=== PATIENT | male | born 1970 | race African-American/Black ===

== ENCOUNTER 2018-07-30 20:31 | Emergency (ER) | payer OTHER ==
[~2018-07-30] VITALS: Ht 182.9 cm; Wt 81.2 kg
[2018-07-30 20:38] VITALS: BP 115/65
[2018-07-30] MEDS ORDERED: NACL 0.9% 1,000 ML IV ONE (21:30)
[2018-07-30] MEDS ORDERED: ASPIRIN 81 MG TAB.CHEW PO ONE (21:30)
[2018-07-30 23:50] VITALS: BP 116/64
== END 2018-07-30 23:50 | disposition home or self-care (01) ==
LOC: MED 20:31
DX: R10.9 Unspecified abdominal pain (principal); Z88.6 Allergy status to analgesic agent; Z88.5 Allergy status to narcotic agent
CPT/HCPCS: 74022; 93005; 99283

== ENCOUNTER 2018-09-20 16:51 | Inpatient (IN) | payer OTHER ==
[~2018-09-20] VITALS: Ht 180.3 cm; Wt 70.3 kg
[2018-09-20 16:55] VITALS: BP 145/95
--- NOTE | 2018-09-20 17:00 | NUR ---
47m bib brother with c/o 10/ diffuse abd pain, but mainly to ruq and rlq abd pain x 4 days, progressively getting worse. Patient also reports of n/v/d. Patient reports of non bloody diarrhea and trace blood in emesis. Approx. 20 episodes a day. Patient denies any urinary complaints or fevers. Pt is aaox4 to person, place, time, and situation. RR are even and unlabored. Dry mucous membrances. Abd soft and tender to palpation to ruq and rlq. Awaiting er md miller. Patient to cardiac, bp, pulse ox, and pulse monitoring. ER MD velasco aware of patient status. Will continue to monitor.
--- NOTE | 2018-09-20 17:55 | NUR ---
patient refused ct. informed er md velasco.
--- NOTE | 2018-09-20 17:57 | NUR ---
patient aware of need of urine sample. urinal given.
--- NOTE | 2018-09-20 17:57 | NUR ---
lab by bedside
[2018-09-20] MEDS ORDERED: NACL 0.9% 1,000 ML IV ONE (18:15)
[2018-09-20 18:27] LABS: BASOPHILS % (AUTO) 0.3 % (0.0-2.0); EOSINOPHILS % (AUTO) 0.1 % (0.0-4.0); HEMATOCRIT 46.8 % (36-52); HEMOGLOBIN 15.2 g/dL (12.0-18.0); LYMPHOCYTES # (AUTO) 0.5 K/uL (2.0-11.5); LYMPHOCYTES % (AUTO) 6.4 % (20.5-51.1); MEAN CORPUSCULAR HEMOGLOBIN 30 pg (27-31); MEAN CORPUSCULAR HGB CONC 32 g/dL (33-37); MEAN CORPUSCULAR VOLUME 91.5 fL (80-94); MONOCYTES # (AUTO) 0.5 K/uL (0.8-1.0); MONOCYTES % (AUTO) 6.3 % (1.7-9.3); NEUTROPHILS % (AUTO) 86.9 % (42.2-75.2); PLATELET COUNT (AUTO) 226 K/uL (140-450); RED BLOOD CELL COUNT(AUTO) 5.11 MIL/uL (4.20-6.10); RED CELL DISTRIBUTION WIDTH 14.7 % (11.6-13.7); WHITE BLOOD COUNT (AUTO) 8.1 K/uL (4.8-10.8)
[2018-09-20 18:47] LABS: ANION GAP 12.5 (8-16); CARBON DIOXIDE 28.9 mmol/L (21-32); CREATININE 1.1 mg/dL (0.7-1.3); POTASSIUM 3.4 mmol/L (3.5-5.1); TOTAL BILIRUBIN 1.5 mg/dL (0.0-1.0)
--- NOTE | 2018-09-20 18:48 | NUR ---
made er md velasco aware of request of pain medication. no new orders.
--- NOTE | 2018-09-20 19:09 | NUR ---
Pt report given to Darlene GONZALEZ. Transfer of care at this time.
--- NOTE | 2018-09-20 19:12 | NUR ---
PT LYING IN BED, VSS.
[2018-09-20] MEDS ORDERED: KETOROLAC 30 MG/ML VIAL IVP ONE (19:55)
[2018-09-20] MEDS ORDERED: ONDANSETRON 4 MG/2 ML VIAL IVP ONE (19:55)
--- NOTE | 2018-09-20 20:19 | NUR ---
Dr. Alan evaluating patient at bedside.
--- NOTE | 2018-09-20 20:30 | NUR ---
PT WAS ABLE TO GIVE A U/A SPECIMEN. LAB TO MANAGER MONEY SPECIMEN. TAMY HOLLIDAY MADE AWARE.
--- NOTE | 2018-09-20 20:49 | NUR ---
PT RETURN FROM XRAY
[2018-09-20] MEDS ORDERED: diphenhydrAMINE 50 MG/ML VIAL IVP ONE (21:30)
[2018-09-20] MEDS ORDERED: fentaNYL 0.05 MG/ML VIAL IVP ONE (21:30)
[2018-09-20 21:43] LABS: APPEARANCE,URINE CLEAR (CLEAR); BILIRUBIN,URINE 2+ (NEGATIVE); BLOOD, URINE NEGATIVE (NEGATIVE); COLOR,URINE YELLOW (YELLOW); LEUKOCYTE ESTERASE ,URINE NEGATIVE (NEGATIVE); NITRITE, URINE NEGATIVE (NEGATIVE); UGLUCOSE NEGATIVE (NEGATIVE)
[2018-09-20 21:52] LABS: BARBITURATE, URINE NEG. ng/ml (NEG <=200); BENZODIAZEPINE, URINE NEG. ng/mL (NEG <=200); CANNABINOID, URINE POS. ng/mL (NEG <=50); COCAINE, URINE NEG. ng/mL (NEG <=300); OPIATE, URINE NEG. ng/mL (NEG <=2000); PHENCYCLIDINE SCREEN,URINE NEG. ng/mL (NEG <=25); RBC,URINE 0-5 (RARE) /HPF (0-5); WBC,URINE 0-5 (RARE) /HPF (0-5)
--- NOTE | 2018-09-20 22:00 | NUR ---
PT STATED HE IS HAVING SOME PAIN. PAIN LEVEL IS 7/1O AT THIS TIME. ER MD MADE AWARE. COMFORT MEASURES WERE OFFERED. PT TOLERATED WELL.
[2018-09-20] MEDS ORDERED: LORazepam 2 MG/ML VIAL IVP PRN (22:40)
[2018-09-20] MEDS ORDERED: POTASSIUM CHL 20MEQ/D5-NS 1,000 ML IV ONE (22:40)
[2018-09-20] MEDS ORDERED: ONDANSETRON 4 MG/2 ML VIAL IVP PRN (22:40)
[2018-09-20 23:30] VITALS: BP 138/76
--- NOTE | 2018-09-20 23:30 | NUR ---
Pt report given to JESÚS RICH. Transfer of care at this time.PT VSS
--- NOTE | 2018-09-20 23:30 | NUR ---
Admitted from ER TO [facility] FOR OBSERVATION , with chief complaint of ABDOMINAL PAIN FOR THREE DAYS NOW 47 y/o ,Male, Cooperative, AWAKE, A/OX4. RESPIRATION EVEN AND UNLABORED. IV SALINE LOCK AT THE RIGHT HAND G24, PATENT AND INTACT. ABDOMEN SOFT, NON-TENDER WITH POSITIVE BOWEL SOUNDS ON ALL QUADRANTS. HEAD TO TOE ASSESSMENT DONE WITH CHARGE NURSE MIMI. NOTED SKIN IRRITATION WITH SCATTERED SCARS LEFT UPPER BACK, NO OPEN WOUND NOTED. ABDOMINAL PAIN 10/10, WILL CALL MD FOR PAIN MEDICATION.oriented to call light, bed, phone,television, bathroom, smoking policy,visiting hours, procedures, ID bracelet on. Belongings list checked.
--- NOTE | 2018-09-20 23:30 | NUR ---
Patient will be admitted to care of DR. BLOOM. Admited to MED SURG. Will go to room 104A. Belongings list completed. Report to JESÚS RICH.PT VSS.
--- NOTE | 2018-09-20 23:53 | NUR ---
IVF OF D5 NS +20 MEQ KCL STARTED AT 80ML/H, PT COMPLAINING OF ABDOMINAL PAIN, WILL MEDICATE PRN
[2018-09-20] MEDS ORDERED: traMADol 50 MG TAB PO PRN (23:55)
[2018-09-20] MEDS ORDERED: ZOLPIDEM 5 MG TAB PO ONE (23:55)
[2018-09-20] MEDS ORDERED: KETOROLAC 30 MG/ML VIAL IM/IVP PRN (23:55)
--- NOTE | 2018-09-21 | NUR ---
REFUSED TORADOL TO BE GIVEN BY LISA RAMON. STATED HIS ABDOMINAL PAIN GETS MORE WORSE THAT'S WHY IN ER THEY GAVE ANOTHER PAIN MEDICATION THAT WAS ABLE TO TAKE AWAY HIS PAIN. EXPLAINED WE CANNOT FIVE FENTANYL ON THE FLOOR BUT WILL CALL MD FOR ANOTHER PAIN MEDICATION.
--- NOTE | 2018-09-21 00:11 | NUR ---
UNABLE TO SLEEP, MEDICATED WITH AMBIEN 5 MG. PO.
--- NOTE | 2018-09-21 00:45 | NUR ---
INFORMED DR. NEVAREZ, PATIENT STATED TORADOL THEY GAVE IN ER MAKES PAIN WORSE, AND REMEMBER WAS GIVEN IN OTHER HOSPITAL DILAUDID AND IT WORKS FOR HIM. ORDERED DILAUDID 1 MG. PRN FOR PAIN.
[2018-09-21] MEDS ORDERED: HYDROmorphone 1 MG/ML AMP IVP PRN (00:50)
--- NOTE | 2018-09-21 01:30 | NUR ---
SLEEPING COMFORTABLY IN BED.
[2018-09-21 05:40] VITALS: BP 151/97
--- NOTE | 2018-09-21 06:27 | NUR ---
PATIENT HAS BEEN SCREENED AND CATEGORIZED MODERATE NUTRITION RISK. PATIENT WILL BE SEEN WITHIN 3-5 DAYS OF ADMISSION. 09/23/18-09/25/18 EVIE JAIMES MS, RDN
--- NOTE | 2018-09-21 07:20 | NUR ---
ABLE TO SLEEP WELL. CONDITION REMAIN STABLE. ENDORSED TO AM NURSES FOR CONTINUITY OF CARE.
--- NOTE | 2018-09-21 07:22 | NUR ---
RECEIVED BEDSIDE REPORT FROM LEAD FORMER NURSE. PATIENT IS AOX4. DENIES OF PAIN. NO SIGNS OF DISTRESS NOTED IN RA. ABLE TO AMBULATE WITH STEADY GAIT. SKIN INTACT, CLEAN AND DRY. IV PATENT AND INTACT, INFUSING 20ML/HR POTASSIUM CHLORIDE. IV SITE CLEAN, AND DRY. RESPIRATORY RATE IS EVEN AND UNLABORED. REVIEW PLAN OF CARE WITH PATIENT, AND PATIENT VERBALIZED UNDERSTANDING. BED IN LOW POSITION, CALL LIGHT WITHIN REACH. WILL CONTINUE TO MONITOR.
[2018-09-21 08:00] VITALS: BP 147/94
[2018-09-21 08:11] LABS: ALBUMIN 3.7 g/dL (3.4-5.0); ANION GAP 10.5 (8-16); CARBON DIOXIDE 29.2 mmol/L (21-32); CREATININE 1.1 mg/dL (0.7-1.3); MAGNESIUM 2.3 mg/dL (1.8-2.4); PHOSPHORUS 3.5 mg/dL (2.5-4.9); POTASSIUM 3.7 mmol/L (3.5-5.1); TOTAL BILIRUBIN 1.5 mg/dL (0.0-1.0)
[2018-09-21] MEDS: ENOXAPARIN 40 MG/0.4 ML SYR SUBQ SCH (08:56)
--- NOTE | 2018-09-21 15:18 | NUR ---
PATIENT COMPLAINS OF ABD PAIN, ULTRAM OFFERED MULTIPLE TIMES TO PATIENT, REFUSES ULTRAM PATIENT SAYS "IT DOES NOT WORK". COMPLAINS OF "HAVING HIGH BLOOD PRESSURE DUE TO PAIN". BLOOD PRESSURE CHECKED AND IS AT 141/93, PULSE:65, WHICH IS SIMILAR TO 0800 BLOOD PRESSURE OF 147/94, 62 AND PATIENT'S PAIN WAS WITHIN TOLERABLE AT 0800. PAGED DR. BLOOM REGARDING PATIENT'S ABD PAIN AND REFUSAL TO TAKE ULTRAM OFFERED. PER DR. BLOOM, HAVE PATIENT TAKE ULTRAM HE WILL NOT PRESCRIBE ANY PAIN MEDICATION VIA IV DUE TO PATIENT PAIN SEEKING BEHAVIOR HX. NOTIFIED PATIENT. PATIENT WISHES TO SPEAK TO ELECTRICIAN CRANE MAINTENANCE. NOTIFIED [employer] EQUIPMENT OPERATOR, [employer]ORE EQUIPMENT OPERATOR NOTIFIED ELECTRICIAN CRANE MAINTENANCE. ELECTRICIAN CRANE MAINTENANCE TO TALK TO PATIENT. WILL CONTINUE TO MONITOR.
[2018-09-21 16:00] VITALS: BP 154/92
--- NOTE | 2018-09-21 18:00 | NUR ---
PATIENT HAD SMALL VOMIT X 1, LESS THAN 10 ML AFTER EATING A LITTLE BIT OF DINNER. OFFERED ZOFRAN, BUT PATIENT REFUSED SAYING ZOFRAN "MAKES ME VOMIT." ATIVAN GIVEN TO PATIENT PATIENT IS ANXIOUS. WILL CONTINUE TO MONITOR.
--- NOTE | 2018-09-21 19:30 | NUR ---
GAVE REPORT TO INTERN ARCHITECT NURSE FOR CONTINUITY OF CARE. PATIENT IN STABLE CONDITION.
--- NOTE | 2018-09-21 19:30 | NUR ---
Patient's Plan of Care was discussed and reviewed with MACHINE PRINTER HOSE: ASTER
--- NOTE | 2018-09-21 19:31 | NUR ---
RECD SLEEPING IN BED, EASILY WAKES UP WHEN AWAKEN BUT WENT BACK TO SLEEP AGAIN. RESPIRATION EVEN AND UNLABORED. IV SALINE LOCK AT THE RIGHT HAND G24, PATENT AND INTACT. WILL CONTINUE TO MONITOR IF PATIENT IS ALREADY TOLERATING DIET ORDERED BY ATTENDING PHYSICIAN SO THAT HE CAN BE DISCHARGED. NO APPEARANCE OF PAIN NOTED 0/10.
--- NOTE | 2018-09-22 | NUR ---
WAKEN UP FOR VITAL SIGN TAKING. WENT BACK TO SLEEP WHEN DONE, VS STABLE.
[2018-09-22 02:17] VITALS: BP 124/78
[2018-09-22] MEDS: traMADol 50 MG TAB PO PRN ×2 (03:03→09:15)
--- NOTE | 2018-09-22 06:00 | NUR ---
DID NOT ASK FOR FOOD BUT DRINK WATER AND JUICES, NO NOTED NAUSEA OR VOMITING.
--- NOTE | 2018-09-22 06:30 | NUR ---
STILL SLEEPING COMFORTABLY IN BED. CONDITION REMAIN STABLE.
--- NOTE | 2018-09-22 07:15 | NUR ---
ENDORSED TO AM SHIFT NURSE FOR CONTINUITY OF CARE.
--- NOTE | 2018-09-22 07:16 | NUR ---
RECEIVED REPORT FROM INFLATABLE BUILDINGS LAMINATOR NURSE. PATIENT LYING DOWN IN BED SLEEPING, AROUSABLE BY VOICE. PAIN WITHIN TOLERABLE AT THIS TIME. AAOX4, CALM, COOPERATIVE, SKIN COLOR APPROPRIATE TO ETHNICITY, WARM TO TOUCH. SKIN IS INTACT. HAD 1 VOMIT EPISODE AFTER DINNER LAST NIGHT. NO VOMIT REPORTED THROUGHOUT NIGHTSHIFT, HOWEVER, PATIENT DID NOT EAT ANYTHING AFTER DINNER PER NIGHT RN REPORTS. IV SITE INTACT, PATENT, ON SALINE LOCK. SAFETY MEASURES IN PLACE, CALL LIGHT WITHIN REACH. WILL CONTINUE TO MONITOR.
[2018-09-22 08:00] VITALS: BP 118/76
[2018-09-22] MEDS: ENOXAPARIN 40 MG/0.4 ML SYR SUBQ SCH (09:17)
--- NOTE | 2018-09-22 09:18 | NUR ---
PATIENT SITTING IN BED WATCHING TV. PATIENT ATE BREAKFAST, NO COMPLAINTS OF NAUSEA/VOMITING. COMPLAINS OF ABD PAIN. ULTRAM GIVEN. WILL CONTINUE TO MONITOR.
--- NOTE | 2018-09-22 11:40 | NUR ---
PATIENT LYING DOWN IN BED. NO DISTRESS NOTED. PAIN WITHIN TOLERABLE. NO NAUSEA/VOMITING NOTED. WILL CONTINUE TO MONITOR.
--- NOTE | 2018-09-22 13:42 | NUR ---
PATIENT LYING DOWN IN BED. NO DISTRESS NOTED. PAIN WITHIN TOLERABLE. DENIES ANY NAUSEA/VOMITING. WILL CONTINUE TO MONITOR.
--- NOTE | 2018-09-22 14:25 | NUR ---
DISCHARGE INSTRUCTIONS PROVIDED TO PATIENT IN PREFERRED LANGUAGE OF BRITISH. FOLLOW-UP VISIT WITH PCP, DIET REGIMEN, AND DISEASE MANAGEMENT OF PANCREATITIS. HOMELESS RESOURCES EDUCATION AND COPIES PROVIDED TO PATIENT. ANSWERED ALL OF PATIENT'S QUESTIONS REGARDING DISCHARGE. OFFERED BUS PASS BUT PATIENT REFUSED. PATIENT TO ARRANGE OWN TRANSPORTATION TO DESTINATION AFTER LEAVING HOSPITAL. IV SITE REMOVED WITH MINIMAL BLOOD AND LUMEN COMPLETELY INTACT. PATIENT TO GET DRESSED AND GATHER BELONGINGS. WILL CONTINUE TO MONITOR.
--- NOTE | 2018-09-22 14:50 | NUR ---
ALL BELONGINGS WITH PATIENT AND PATIENT ALL DRESSED UP. ID BANDS REMOVED. ESCORTED PATIENT DOWN TO LOBBY VIA STEADY AMBULATION. PATIENT HAS OWN CAR. PATIENT DISCHARGED AT THIS TIME IN STABLE CONDITION.
== END 2018-09-22 14:50 | disposition home or self-care (01) | DRG 282 ==
LOC: MED 16:51 → MTU 22:53 → OBSVTOIN 22:53 → MTU 23:30
PROVIDERS: ADMIT Internal Medicine; ATTEND Internal Medicine
DX: K85.90 Acute pancreatitis without necrosis or infection, unspecified (principal); E78.5 Hyperlipidemia, unspecified; E87.6 Hypokalemia; F10.10 Alcohol abuse, uncomplicated; I10 Essential (primary) hypertension; K59.00 Constipation, unspecified; F12.10 Cannabis abuse, uncomplicated; F17.210 Nicotine dependence, cigarettes, uncomplicated; Y90.9 Presence of alcohol in blood, level not specified; Z88.6 Allergy status to analgesic agent; Z88.5 Allergy status to narcotic agent; Z59.0 Homelessness
CPT/HCPCS: 36415; 74022; 80053; 80305; 81001; 83690; 83735; 84100; 85025; 87081; 96361; 96374; 96375; 99285; J1170; J1200; J1650; J1885; J2060; J2405; J3010

== ENCOUNTER 2019-08-13 13:48 | Emergency (ER) | payer OTHER ==
[~2019-08-13] VITALS: Ht 182.9 cm; Wt 82.1 kg
[2019-08-13 14:12] VITALS: BP 104/53
--- NOTE | 2019-08-13 14:16 | NUR ---
PT AMBULATED TO ED FAMILIA
--- NOTE | 2019-08-13 14:55 | NUR ---
CALLED PATIENT, NO RESPONSE.
--- NOTE | 2019-08-13 15:13 | NUR ---
PATIENT AMBULATED WITH STEADY GAIT TO BED 2.
--- NOTE | 2019-08-13 15:18 | NUR ---
48/M C/O 10/10 GENERALIZED ABDOMINAL PAIN WITH NAUSEA/VOMITING X 3 DAYS. LAST BM 2 DAYS AGO, DIARRHEA. STATES BLOOD TINGED VOMIT 2X; DENIES DRINKING RED FLUIDS. PAIN 10/10 CONSTANT AND SHARP. DENIES FEVER, STATES OCCASIONAL CHILLS. RT FLANK ANTERIORLY TENDER TO PALPATION. ACTIVE BOWEL SOUNDS. PMH;HTN, HIGH CHOLESTEROL
--- NOTE | 2019-08-13 15:39 | NUR ---
DR STOUT EVALUATING PT AT BEDSIDE
[2019-08-13] MEDS ORDERED: PANTOPRAZOLE 40 MG INJ VIAL IVP ONE (15:45)
[2019-08-13] MEDS ORDERED: KETOROLAC 30 MG/ML VIAL IVP ONE (15:45)
[2019-08-13] MEDS ORDERED: ONDANSETRON 4 MG/2 ML VIAL IVP ONE (15:45)
[2019-08-13] MEDS ORDERED: NACL 0.9% 1,000 ML IV ONE (15:45)
--- NOTE | 2019-08-13 16:04 | NUR ---
PT REFUSED TORADOL, STATES ALLERGY (ITCHING). NOTIFIED DR. STOUT.
[2019-08-13 16:29] LABS: BASOPHILS % (AUTO) 0.3 % (0.0-2.0); EOSINOPHILS % (AUTO) 0.4 % (0.0-4.0); HEMATOCRIT 47.1 % (36-52); HEMOGLOBIN 15.5 g/dL (12.0-18.0); LYMPHOCYTES # (AUTO) 0.7 K/uL (2.0-11.5); LYMPHOCYTES % (AUTO) 9.1 % (20.5-51.1); MEAN CORPUSCULAR HEMOGLOBIN 30 pg (27-31); MEAN CORPUSCULAR HGB CONC 33 g/dL (33-37); MEAN CORPUSCULAR VOLUME 92.2 fL (80-94); MONOCYTES # (AUTO) 0.8 K/uL (0.8-1.0); MONOCYTES % (AUTO) 9.4 % (1.7-9.3); NEUTROPHILS # (AUTO) 6.6 K/uL (1.8-7.7); NEUTROPHILS % (AUTO) 80.8 % (42.2-75.2); PLATELET COUNT (AUTO) 175 K/uL (140-450); RED BLOOD CELL COUNT(AUTO) 5.11 MIL/uL (4.20-6.10); RED CELL DISTRIBUTION WIDTH 14.3 % (11.6-13.7); WHITE BLOOD COUNT (AUTO) 8.2 K/uL (4.8-10.8)
[2019-08-13 16:42] LABS: ANION GAP 14.3 (8-16); CARBON DIOXIDE 26.6 mmol/L (21-32); POTASSIUM 3.9 mmol/L (3.5-5.1)
[2019-08-13 16:47] LABS: ALBUMIN 3.8 g/dL (3.4-5.0); TOTAL BILIRUBIN 1.1 mg/dL (0.0-1.0)
--- NOTE | 2019-08-13 17:15 | NUR ---
NOTIFIED DR. STOUT PT CONTINUES TO ASK FOR PAIN MED. PER DR. STOUT, WILL D/C PT.
--- NOTE | 2019-08-13 17:24 | NUR ---
PT IS D/C BUT REFUSES TO LEAVE, STATES HE DID NOT GET PAIN MED. ALSO REFUSED TO HAVE IV REMOVED. NURSING SURGICAL SERVICES DIRECTOR NOTIFIED.
--- NOTE | 2019-08-13 17:30 | NUR ---
SPOKE WITH PATIENT REGARDING DISCHARGE. PT STATES "IM NOT LEAVING IM JUST GOING TO CALL MY DOCTOR, IM NOT LEAVING" INFORMED PT DR FUNG FEELS THAT PT IS SAFE FOR D/C AND THAT ALL HIS EXAMS RETURNED NORMAL RESULTS. PT STILL REFUSING TO LEAVE. SECURITY CALLED.
--- NOTE | 2019-08-13 17:32 | NUR ---
SECURITY AT BEDSIDE. IV REMOVED, CATHETER INTACT. ATTEMPTED TO EDUCATE PT OF DISCHARGE INSTRUCTIONS AND PRESCRIPTIONS. PT REFUSED DISCHARGE EDUCATION AND RX. PT LEFT FACILTY WITHOUT DISCHARGE INSTRUCTIONS. DR FUNG AWARE.
[2019-08-13 17:34] VITALS: BP 134/58
--- NOTE | 2019-08-13 17:48 | NUR ---
PER LAB, NEED NEW STOOL SAMPLE. PT STATES HE IS UNABLE TO HAVE BM AT THIS TIME. DEVIN LIPSCOMB NOTIFIED. Addendum: 08/13/19 at 1804 by SHAMIKA DISREGARD, WRONG PT
== END 2019-08-13 17:34 | disposition home or self-care (01) ==
LOC: MED 13:48
DX: K29.70 Gastritis, unspecified, without bleeding (principal); I10 Essential (primary) hypertension; Z88.8 Allergy status to other drugs, medicaments and biological substances
CPT/HCPCS: 36415; 80053; 83690; 85025; 96361; 96374; 96375; 99283; C9113; J2405; J1885